=== PATIENT | male | born 1940 | race African-American/Black ===

== ENCOUNTER 2023-09-25 10:41 | Emergency (ER) | payer MEDICARE, BC ==
[~2023-09-25] VITALS: Ht 172.7 cm; Wt 79.0 kg
[2023-09-25 10:54] VITALS: O2SAT 100
[2023-09-25 11:38] LABS: BASOPHILS % 0.7 % (0.0-2.0); EOSINOPHILS % 2.1 % (0.0-5.0); HEMATOCRIT. 35.1 % (42.0-52.0); HEMOGLOBIN. 11.5 g/dL (14.0-18.0); LYMPHOCYTES % 27.1 % (20.0-50.0); MEAN CORPUSCULAR HEMOGLOBIN 31.7 pg (28.0-32.0); MEAN CORPUSCULAR HGB CONC 32.7 g/dL (31.0-37.0); MEAN CORPUSCULAR VOLUME 96.9 fL (80.0-94.0); MONOCYTES % 7.5 % (2.0-8.0); NEUTROPHILS % 62.6 % (40.0-76.0); PLATELET 242 x1000/uL (130-400); RED BLOOD CELL COUNT 3.62 mill/uL (4.7-6.1); RED CELL DISTRIBUTION WIDTH 12.8 % (11.6-14.6); WHITE BLOOD COUNT 6.5 x1000/uL (4.5-11.0)
[2023-09-25 11:43] LABS: POTASSIUM 5.3 mEq/L (3.5-5.1)
[2023-09-25 11:44] LABS: CALCIUM 9.3 mg/dL (8.7-10.4)
[2023-09-25 11:49] LABS: CREATININE 4.4 mg/dL (0.6-1.3)
[2023-09-25 12:58] VITALS: BP 171/69; PULSE 73; RESP 18; TEMP 98.1
== END 2023-09-25 12:55 | disposition home or self-care (01) ==
LOC: ER 10:41
DX: I12.9 Hypertensive chronic kidney disease with stage 1 through stage 4 chronic kidney disease, or unspecified chronic kidney disease (principal); E11.22 Type 2 diabetes mellitus with diabetic chronic kidney disease; N18.9 Chronic kidney disease, unspecified
CPT/HCPCS: 36415; 80048; 82962; 85025; 99283